=== PATIENT | male | born 1965 | race Two or more races ===

== ENCOUNTER 2020-09-06 22:28 | Inpatient (IN) | payer OTHER ==
[~2020-09-06] VITALS: Ht 175.3 cm; Wt 115.9 kg
[2020-09-06 23:20] LABS: Basophils # (auto) 0.1 10 ^3/uL (0-0.2); Eosinophils # (auto) 0 10 ^3/uL (0-0.8); Hematocrit 41.3 % (41.0-53.0); Hemoglobin 14.2 g/dL (13.5-17.5); Lymphocytes # (auto) 0.7 10 ^3/uL (0.4-5.4); Lymphocytes % (auto) 14.7 % (10.0-50.0); Mean Corpuscular Hemoglobin 28.9 pg (28.0-32.0); Mean Corpuscular Hgb Conc. 34.5 g/dL (32.0-36.0); Monocytes # (auto) 0.3 10 ^3/uL (0-1.3); Monocytes % (auto) 5.9 % (0.0-12.0); Neutrophils # (auto) 3.9 10 ^3/uL (1.6-8.6); Neutrophils % (auto) 77.4 % (37.0-80.0); Nucleated Red Blood Cells % 0.2 %; Platelet Count (auto) 165 10^3/uL (140-450); Red Blood Cells 4.92 10^6/uL (4.5-5.90)
[2020-09-06 23:38] LABS: Albumin 2.8 g/dL (3.4-5.0); Anion Gap 10 (5-15); BUN/Creatinine Ratio 19.5; Blood Urea Nitrogen 16 mg/dL (7-18); Calcium 8.3 mg/dL (8.5-10.1); Carbon Dioxide 22 mmol/L (21-32); Chloride 102 mmol/L (98-107); GFR African American 125 mL/min; GFR Non-African American 103 mL/min; Glucose 107 mg/dL (74-106); Magnesium 2.4 mg/dL (1.6-2.6); Potassium 3.6 mmol/L (3.5-5.1); Sodium 134 mmol/L (136-145)
[2020-09-06 23:39] LABS: INR 1.04 (0.9-1.15)
[2020-09-06 23:46] LABS: Alanine Aminotransferase 33 U/L (16-61); Alkaline Phosphatase 65 U/L (45-117); Aspartate Aminotransferase 44 U/L (15-37); Bilirubin, Total 1.2 mg/dL (0.2-1.0); Total Protein 7.5 g/dL (6.4-8.2)
[2020-09-07] MEDS ORDERED: ACETAMINOPHEN 500 MG TAB PO ONE (02:00)
[2020-09-07] MEDS ORDERED: MORPHINE SULF INJ 2 MG/ML SYRINGE 1ML IV PRN (03:00)
[2020-09-07] MEDS ORDERED: TEMAZEPAM 15 MG CAP PO PRN (03:00)
[2020-09-07] MEDS ORDERED: cloNIDine HCL 0.1 MG TAB PO PRN (03:00)
[2020-09-07] MEDS ORDERED: NITROGLYCERIN 0.4 MG SL TAB SL PRN (03:00)
[2020-09-07] MEDS ORDERED: REMDESIVIR PER PHARMACY 0 ML IV SCH (03:00)
[2020-09-07] MEDS ORDERED: DEXTROSE (50%) 50ML SYRG IV PRN ×2 (03:00)
[2020-09-07] MEDS ORDERED: ONDANSETRON HCL 4 MG/2 ML VIAL IV PRN (03:00)
[2020-09-07 03:04] VITALS: BP 120/69
[2020-09-07 03:57] LABS: CRP High Sensitivity 17.6 mg/dL (< 0.3)
[2020-09-07] MEDS: AZITHROMYCIN 500MG/ 250ML 250 ML IV SCH (04:03)
[2020-09-07] MEDS: DexAMETHasone SOD PHOS 10MG/1ML VIAL INJ IV SCH (04:03)
[2020-09-07 05:02] VITALS: BP 115/57
[2020-09-07] MEDS ORDERED: CLAR1TAB21 PO (05:31)
[2020-09-07] MEDS ORDERED: CHOL20007 PO (05:31)
[2020-09-07] MEDS ORDERED: INSUINJ3 SC (05:31)
[2020-09-07] MEDS ORDERED: ASPI-543 PO (05:31)
[2020-09-07] MEDS ORDERED: METF-929 PO (05:31)
[2020-09-07] MEDS ORDERED: [UNRECOGNIZED DRUG - CODE] IN (05:31)
[2020-09-07] MEDS ORDERED: ATOR-47 PO (05:31)
[2020-09-07] MEDS ORDERED: EMPA1TAB3 PO (05:31)
[2020-09-07] MEDS ORDERED: AMLO-496 PO (05:31)
[2020-09-07] MEDS ORDERED: LORA-622 PO (05:31)
[2020-09-07] MEDS ORDERED: METO-159 PO (05:31)
[2020-09-07] MEDS ORDERED: LOSA-39 PO (05:31)
[2020-09-07] MEDS ORDERED: BRIM0.1S3 OP (05:31)
[2020-09-07] MEDS: InsuLIN REG 1unit/0.01ml Soln (100units/ml) SC SCH ×4 (06:08→21:47)
[2020-09-07] MEDS: ACCU-CHEK COMFORT CURVE STRIP VI SCH ×4 (06:09→21:45)
[2020-09-07] MEDS ORDERED: ACCU-CHEK COMFORT CURVE STRIP VI SCH (07:00)
[2020-09-07] MEDS ORDERED: InsuLIN REG 1unit/0.01ml Soln (100units/ml) SC SCH (07:00)
[2020-09-07] MEDS: BUDESONIDE (INHALATION) 180 MCG IH IN SCH ×2 (08:15→19:11)
[2020-09-07] MEDS: ALBUTEROL SULF HFA 90MCG INH 200DOSE IN PRN ×3 (08:15→19:11)
[2020-09-07 08:30] VITALS: BP 120/62
[2020-09-07] MEDS ORDERED: REMDESIVIR 200 MG in NS 210ml LOADING DOSE ADULT IV ONE (10:00)
[2020-09-07] MEDS ORDERED: LOSARTAN POTASSIUM 50 MG TAB PO SCH (10:00)
[2020-09-07] MEDS ORDERED: diphenhdrAMINE HCL 50 MG/1 ML VL IV PRN (10:45)
[2020-09-07] MEDS: FAMOTIDINE 20 MG TAB PO SCH ×2 (10:48→21:45)
[2020-09-07] MEDS: METOPROLOL TARTRATE 50 MG TAB PO SCH ×2 (10:48→21:45)
[2020-09-07] MEDS: ASCORBIC ACID 1,000 MG TAB PO SCH (10:48)
[2020-09-07] MEDS: ASPirin 81 mg TAB PO SCH (10:48)
[2020-09-07] MEDS: ZINC SULFATE 220mg CAP or TAB PO SCH (10:48)
[2020-09-07] MEDS: CHOLECALCIFEROL (VITD3) 2,000 UNIT CAP/TAB PO SCH (10:49)
[2020-09-07] MEDS: ENOXAPARIN SOD 40 MG/0.4 ML SYRINGE SC SCH ×2 (10:49→21:45)
[2020-09-07 12:30] VITALS: BP 133/59
[2020-09-07] MEDS ORDERED: methylPREDNISolone SOD SUCC 40 MG/ML VL IV ONE (13:30)
[2020-09-07] MEDS ORDERED: diphenhdrAMINE HCL 50 MG/1 ML VL IV ONE (13:30)
[2020-09-07] MEDS ORDERED: ACETAMINOPHEN 650 mg PER 20.3 mL UD PO ONE (13:30)
[2020-09-07] MEDS ORDERED: guaiFENesin-DM 100/10mg/5ml SYR PO PRN (14:00)
[2020-09-07] MEDS ORDERED: FUROSEMIDE 40 MG/4 ML VIAL IV ONE (14:00)
[2020-09-07] MEDS ORDERED: TOCILIZUMAB 400 MG in SODIUM CHL 0.9% 80 ML IV ONE (14:00)
[2020-09-07] MEDS ORDERED: POTASSIUM CHL 10 Meq TABLET PO ONE (14:00)
[2020-09-07 16:59] VITALS: BP 117/69
[2020-09-07] MEDS: ATORVASTATIN 20 MG TAB PO SCH (21:44)
[2020-09-07] MEDS ORDERED: INSULIN LANTUS (GLARGINE) 1 /0.01ml (100units/ml) SC SCH (22:00)
[2020-09-08] VITALS (8 sets, daily range): BP systolic 108–149; BP diastolic 54–84
[2020-09-08] MEDS: ACCU-CHEK COMFORT CURVE STRIP VI SCH ×4 (05:50→22:00)
[2020-09-08] MEDS: InsuLIN REG 1unit/0.01ml Soln (100units/ml) SC SCH ×4 (05:55→22:50)
[2020-09-08 06:31] LABS: Basophils # (auto) 0 10 ^3/uL (0-0.2); Basophils % (auto) 0.2 % (0.0-2.0); Eosinophils # (auto) 0 10 ^3/uL (0-0.8); Hematocrit 40.3 % (41.0-53.0); Lymphocytes # (auto) 0.7 10 ^3/uL (0.4-5.4); Lymphocytes % (auto) 19.7 % (10.0-50.0); Mean Corpuscular Hemoglobin 29.3 pg (28.0-32.0); Mean Corpuscular Hgb Conc. 34.8 g/dL (32.0-36.0); Mean Corpuscular Volume 84.3 fL (80.0-100.0); Monocytes # (auto) 0.3 10 ^3/uL (0-1.3); Monocytes % (auto) 8.4 % (0.0-12.0); Neutrophils # (auto) 2.6 10 ^3/uL (1.6-8.6); Neutrophils % (auto) 71.7 % (37.0-80.0); Nucleated Red Blood Cells % 0.2 %; Platelet Count (auto) 202 10^3/uL (140-450); Red Blood Cells 4.78 10^6/uL (4.5-5.90); White Blood Cell 3.7 10^3/uL (4.4-10.8)
[2020-09-08 06:41] LABS: Albumin 2.6 g/dL (3.4-5.0); Calcium 8.2 mg/dL (8.5-10.1)
[2020-09-08] MEDS: BUDESONIDE (INHALATION) 180 MCG IH IN SCH ×2 (06:45→22:03)
[2020-09-08] MEDS: ALBUTEROL SULF HFA 90MCG INH 200DOSE IN PRN ×2 (06:45→22:03)
[2020-09-08 06:46] LABS: BUN/Creatinine Ratio 38.8; Bilirubin, Total 1.2 mg/dL (0.2-1.0); Total Protein 7.4 g/dL (6.4-8.2)
[2020-09-08] MEDS ORDERED: DEXTROSE (50%) 50ML SYRG IV PRN (09:15)
[2020-09-08] MEDS ORDERED: ACETAMINOPHEN 650 mg PER 20.3 mL UD PO ONE (10:00)
[2020-09-08] MEDS ORDERED: diphenhdrAMINE HCL 50 MG/1 ML VL IV ONE (10:00)
[2020-09-08] MEDS: FUROSEMIDE 40 MG/4 ML VIAL IV SCH (10:00)
[2020-09-08] MEDS: ASPirin 81 mg TAB PO SCH (10:30)
[2020-09-08] MEDS ORDERED: TOCILIZUMAB 400 MG in SODIUM CHL 0.9% 80 ML IV ONE (10:30)
[2020-09-08] MEDS: ZINC SULFATE 220mg CAP or TAB PO SCH (10:31)
[2020-09-08] MEDS: POTASSIUM CHL 10 Meq TABLET PO SCH (10:31)
[2020-09-08] MEDS: METOPROLOL TARTRATE 50 MG TAB PO SCH ×2 (10:32→23:11)
[2020-09-08] MEDS: FAMOTIDINE 20 MG TAB PO SCH ×2 (10:33→23:11)
[2020-09-08] MEDS: ASCORBIC ACID 1,000 MG TAB PO SCH (10:34)
[2020-09-08] MEDS: CHOLECALCIFEROL (VITD3) 2,000 UNIT CAP/TAB PO SCH (10:34)
[2020-09-08] MEDS: ENOXAPARIN SOD 40 MG/0.4 ML SYRINGE SC SCH ×2 (10:35→23:11)
[2020-09-08] MEDS: DexAMETHasone SOD PHOS 10MG/1ML VIAL INJ IV SCH (10:54)
[2020-09-08] MEDS: AZITHROMYCIN 500MG/ 250ML 250 ML IV SCH (11:59)
[2020-09-08] MEDS: INSULIN LANTUS (GLARGINE) 1 /0.01ml (100units/ml) SC SCH ×2 (12:04→22:51)
[2020-09-08] MEDS: REMDESIVIR 100mg 100 MG in SODIUM CHL 0.9% 230 ML IV SCH (16:10)
[2020-09-08] MEDS: ATORVASTATIN 20 MG TAB PO SCH (23:09)
[2020-09-08] MEDS: ACETAMINOPHEN 500 MG TAB PO PRN (23:11)
[2020-09-09] MEDS: ALBUTEROL SULF HFA 90MCG INH 200DOSE IN PRN ×2 (06:05→19:25)
[2020-09-09] MEDS: BUDESONIDE (INHALATION) 180 MCG IH IN SCH ×2 (06:05→19:25)
[2020-09-09] MEDS: InsuLIN REG 1unit/0.01ml Soln (100units/ml) SC SCH ×4 (06:47→22:40)
[2020-09-09] MEDS: ACCU-CHEK COMFORT CURVE STRIP VI SCH ×4 (06:48→22:00)
[2020-09-09 08:51] VITALS: BP 124/69
[2020-09-09] MEDS: AZITHROMYCIN 500MG/ 250ML 250 ML IV SCH (09:35)
[2020-09-09] MEDS: FUROSEMIDE 40 MG/4 ML VIAL IV SCH (09:35)
[2020-09-09] MEDS: DexAMETHasone SOD PHOS 10MG/1ML VIAL INJ IV SCH (09:35)
[2020-09-09] MEDS: ZINC SULFATE 220mg CAP or TAB PO SCH (09:36)
[2020-09-09] MEDS: ASPirin 81 mg TAB PO SCH (09:36)
[2020-09-09] MEDS: POTASSIUM CHL 10 Meq TABLET PO SCH (09:36)
[2020-09-09] MEDS: CHOLECALCIFEROL (VITD3) 2,000 UNIT CAP/TAB PO SCH (09:37)
[2020-09-09] MEDS: FAMOTIDINE 20 MG TAB PO SCH ×2 (09:37→22:53)
[2020-09-09] MEDS: ASCORBIC ACID 1,000 MG TAB PO SCH (09:37)
[2020-09-09] MEDS: METOPROLOL TARTRATE 50 MG TAB PO SCH ×2 (09:37→22:52)
[2020-09-09] MEDS: ENOXAPARIN SOD 40 MG/0.4 ML SYRINGE SC SCH ×2 (09:38→22:53)
[2020-09-09] MEDS: INSULIN LANTUS (GLARGINE) 1 /0.01ml (100units/ml) SC SCH ×2 (09:39→22:43)
[2020-09-09 13:22] VITALS: BP 130/72
[2020-09-09] MEDS: REMDESIVIR 100mg 100 MG in SODIUM CHL 0.9% 230 ML IV SCH (14:25)
[2020-09-09 16:40] VITALS: BP 113/63
[2020-09-09 22:00] VITALS: BP 128/68
[2020-09-09] MEDS: ATORVASTATIN 20 MG TAB PO SCH (22:52)
[2020-09-10 05:00] VITALS: BP 124/66
[2020-09-10] MEDS: BUDESONIDE (INHALATION) 180 MCG IH IN SCH ×2 (06:04→22:55)
[2020-09-10] MEDS: ALBUTEROL SULF HFA 90MCG INH 200DOSE IN PRN (06:05)
[2020-09-10 06:07] LABS: Albumin 2.6 g/dL (3.4-5.0); BUN/Creatinine Ratio 42.4; Calcium 8.3 mg/dL (8.5-10.1); Potassium 3.9 mmol/L (3.5-5.1)
[2020-09-10 06:10] LABS: Bilirubin, Total 0.8 mg/dL (0.2-1.0); Total Protein 6.5 g/dL (6.4-8.2)
[2020-09-10] MEDS: InsuLIN REG 1unit/0.01ml Soln (100units/ml) SC SCH ×4 (06:18→21:35)
[2020-09-10] MEDS: ACCU-CHEK COMFORT CURVE STRIP VI SCH ×4 (06:19→21:27)
[2020-09-10 08:00] VITALS: BP 118/69
[2020-09-10] MEDS: FUROSEMIDE 40 MG/4 ML VIAL IV SCH (08:58)
[2020-09-10] MEDS: ENOXAPARIN SOD 40 MG/0.4 ML SYRINGE SC SCH ×2 (08:58→21:27)
[2020-09-10] MEDS: DexAMETHasone SOD PHOS 10MG/1ML VIAL INJ IV SCH (08:58)
[2020-09-10] MEDS: AZITHROMYCIN 500MG/ 250ML 250 ML IV SCH (08:58)
[2020-09-10] MEDS: FAMOTIDINE 20 MG TAB PO SCH ×2 (08:58→21:26)
[2020-09-10] MEDS: ASPirin 81 mg TAB PO SCH (08:59)
[2020-09-10] MEDS: POTASSIUM CHL 10 Meq TABLET PO SCH (08:59)
[2020-09-10] MEDS: ASCORBIC ACID 1,000 MG TAB PO SCH (08:59)
[2020-09-10] MEDS: METOPROLOL TARTRATE 50 MG TAB PO SCH ×2 (08:59→21:27)
[2020-09-10] MEDS: ZINC SULFATE 220mg CAP or TAB PO SCH (08:59)
[2020-09-10] MEDS: CHOLECALCIFEROL (VITD3) 2,000 UNIT CAP/TAB PO SCH (08:59)
[2020-09-10] MEDS: INSULIN LANTUS (GLARGINE) 1 /0.01ml (100units/ml) SC SCH ×2 (11:01→21:35)
[2020-09-10 12:00] VITALS: BP 139/76
[2020-09-10] MEDS: REMDESIVIR 100mg 100 MG in SODIUM CHL 0.9% 230 ML IV SCH (15:08)
[2020-09-10 15:56] VITALS: BP 122/65
[2020-09-10] MEDS: ACETAMINOPHEN 500 MG TAB PO PRN (19:19)
[2020-09-10] MEDS: ATORVASTATIN 20 MG TAB PO SCH (21:26)
[2020-09-10 22:00] VITALS: BP 122/72
[2020-09-11] VITALS (7 sets, daily range): BP systolic 123–143; BP diastolic 65–77
[2020-09-11] MEDS: ACCU-CHEK COMFORT CURVE STRIP VI SCH ×4 (05:58→22:00)
[2020-09-11] MEDS ORDERED: BRIMONIDINE 0.2% OPTH Soln 5ml EACHEYE SCH (06:00)
[2020-09-11] MEDS: BRIMONIDINE 0.2% OPTH Soln 5ml LEFTEYE SCH ×3 (06:00→22:00)
[2020-09-11] MEDS: InsuLIN REG 1unit/0.01ml Soln (100units/ml) SC SCH ×4 (06:13→22:00)
[2020-09-11] MEDS: ALBUTEROL SULF HFA 90MCG INH 200DOSE IN PRN ×2 (06:50→19:25)
[2020-09-11] MEDS: BUDESONIDE (INHALATION) 180 MCG IH IN SCH ×2 (06:50→19:25)
[2020-09-11 07:32] LABS: Albumin 2.7 g/dL (3.4-5.0); BUN/Creatinine Ratio 44.4; Calcium 8.6 mg/dL (8.5-10.1)
[2020-09-11 07:42] LABS: Bilirubin, Total 0.9 mg/dL (0.2-1.0); Total Protein 6.3 g/dL (6.4-8.2)
[2020-09-11 08:42] LABS: Hematocrit 42.8 % (41.0-53.0); Mean Corpuscular Hemoglobin 29.4 pg (28.0-32.0); Mean Corpuscular Volume 84.1 fL (80.0-100.0); Platelet Count (auto) 267 10^3/uL (140-450); Red Blood Cells 5.09 10^6/uL (4.5-5.90); Red Cell Distribution Width 13.9 % (11.8-14.3); White Blood Cell 4.8 10^3/uL (4.4-10.8)
[2020-09-11 08:47] LABS: Basophils % (manual) 0 (0.0-2.0); Blast Cells 0; Eosinophils % (manual) 0 (0-7); Promyelocytes % 0; Reactive Lymphocytes 0
[2020-09-11] MEDS: DexAMETHasone SOD PHOS 10MG/1ML VIAL INJ IV SCH (10:29)
[2020-09-11] MEDS: AZITHROMYCIN 500MG/ 250ML 250 ML IV SCH (10:30)
[2020-09-11] MEDS: ZINC SULFATE 220mg CAP or TAB PO SCH (10:30)
[2020-09-11] MEDS: FUROSEMIDE 40 MG/4 ML VIAL IV SCH (10:30)
[2020-09-11] MEDS: ASPirin 81 mg TAB PO SCH (10:30)
[2020-09-11] MEDS: POTASSIUM CHL 10 Meq TABLET PO SCH (10:31)
[2020-09-11] MEDS: ASCORBIC ACID 1,000 MG TAB PO SCH (10:31)
[2020-09-11] MEDS: METOPROLOL TARTRATE 50 MG TAB PO SCH ×2 (10:31→23:15)
[2020-09-11] MEDS: FAMOTIDINE 20 MG TAB PO SCH ×2 (10:31→23:15)
[2020-09-11] MEDS: CHOLECALCIFEROL (VITD3) 2,000 UNIT CAP/TAB PO SCH (10:32)
[2020-09-11] MEDS: ENOXAPARIN SOD 40 MG/0.4 ML SYRINGE SC SCH ×2 (10:32→23:16)
[2020-09-11] MEDS: INSULIN LANTUS (GLARGINE) 1 /0.01ml (100units/ml) SC SCH ×2 (12:00→22:00)
[2020-09-11 13:51] LABS: Band Neutrophils % (manual) 3; Lymphocytes % (manual) 38 (10.0-50.0); Metamyelocytes % 2; Monocytes % (manual) 4 (0-12); Myelocytes % 1
[2020-09-11] MEDS: REMDESIVIR 100mg 100 MG in SODIUM CHL 0.9% 230 ML IV SCH (14:40)
[2020-09-11] MEDS: ATORVASTATIN 20 MG TAB PO SCH (23:16)
[2020-09-12 05:00] VITALS: BP 112/59
[2020-09-12] MEDS: BRIMONIDINE 0.2% OPTH Soln 5ml LEFTEYE SCH ×3 (06:00→21:33)
[2020-09-12] MEDS: ALBUTEROL SULF HFA 90MCG INH 200DOSE IN PRN ×2 (06:50→21:43)
[2020-09-12] MEDS: BUDESONIDE (INHALATION) 180 MCG IH IN SCH ×2 (06:50→21:43)
[2020-09-12] MEDS: InsuLIN REG 1unit/0.01ml Soln (100units/ml) SC SCH ×3 (06:55→17:04)
[2020-09-12] MEDS: ACCU-CHEK COMFORT CURVE STRIP VI SCH ×3 (07:00→17:04)
[2020-09-12 08:31] VITALS: BP 124/68
[2020-09-12] MEDS: DexAMETHasone SOD PHOS 10MG/1ML VIAL INJ IV SCH (09:04)
[2020-09-12] MEDS: ASPirin 81 mg TAB PO SCH (09:04)
[2020-09-12] MEDS: FUROSEMIDE 40 MG/4 ML VIAL IV SCH (09:04)
[2020-09-12] MEDS: FAMOTIDINE 20 MG TAB PO SCH ×2 (09:05→21:31)
[2020-09-12] MEDS: ASCORBIC ACID 1,000 MG TAB PO SCH (09:05)
[2020-09-12] MEDS: METOPROLOL TARTRATE 50 MG TAB PO SCH ×2 (09:05→21:33)
[2020-09-12] MEDS: POTASSIUM CHL 10 Meq TABLET PO SCH (09:05)
[2020-09-12] MEDS: ZINC SULFATE 220mg CAP or TAB PO SCH (09:05)
[2020-09-12] MEDS: ENOXAPARIN SOD 40 MG/0.4 ML SYRINGE SC SCH ×2 (09:06→21:31)
[2020-09-12] MEDS: CHOLECALCIFEROL (VITD3) 2,000 UNIT CAP/TAB PO SCH (09:06)
[2020-09-12] MEDS: INSULIN LANTUS (GLARGINE) 1 /0.01ml (100units/ml) SC SCH (09:52)
[2020-09-12 13:02] VITALS: BP 97/50
[2020-09-12 17:20] VITALS: BP 113/72
[2020-09-12] MEDS: ATORVASTATIN 20 MG TAB PO SCH (21:31)
[2020-09-12] MEDS: ACETAMINOPHEN 500 MG TAB PO PRN (21:32)
[2020-09-12 22:00] VITALS: BP 141/67
[2020-09-13] MEDS: ACCU-CHEK COMFORT CURVE STRIP VI SCH ×5 (03:40→21:34)
[2020-09-13] MEDS: InsuLIN REG 1unit/0.01ml Soln (100units/ml) SC SCH ×5 (03:41→21:45)
[2020-09-13] MEDS: INSULIN LANTUS (GLARGINE) 1 /0.01ml (100units/ml) SC SCH ×3 (03:42→21:42)
[2020-09-13 05:00] VITALS: BP 135/75
[2020-09-13] MEDS: BRIMONIDINE 0.2% OPTH Soln 5ml LEFTEYE SCH ×3 (05:32→22:01)
[2020-09-13] MEDS: ALBUTEROL SULF HFA 90MCG INH 200DOSE IN PRN ×2 (06:30→20:47)
[2020-09-13] MEDS: BUDESONIDE (INHALATION) 180 MCG IH IN SCH ×2 (06:30→20:46)
[2020-09-13 08:30] VITALS: BP 120/59
[2020-09-13] MEDS: DexAMETHasone SOD PHOS 10MG/1ML VIAL INJ IV SCH (10:20)
[2020-09-13] MEDS: ZINC SULFATE 220mg CAP or TAB PO SCH (10:21)
[2020-09-13] MEDS: ASPirin 81 mg TAB PO SCH (10:21)
[2020-09-13] MEDS: FUROSEMIDE 40 MG/4 ML VIAL IV SCH (10:21)
[2020-09-13] MEDS: POTASSIUM CHL 10 Meq TABLET PO SCH (10:21)
[2020-09-13] MEDS: CHOLECALCIFEROL (VITD3) 2,000 UNIT CAP/TAB PO SCH (10:22)
[2020-09-13] MEDS: METOPROLOL TARTRATE 50 MG TAB PO SCH ×2 (10:22→21:33)
[2020-09-13] MEDS: ASCORBIC ACID 1,000 MG TAB PO SCH (10:22)
[2020-09-13] MEDS: FAMOTIDINE 20 MG TAB PO SCH ×2 (10:22→21:33)
[2020-09-13] MEDS: ENOXAPARIN SOD 40 MG/0.4 ML SYRINGE SC SCH ×2 (10:22→21:34)
[2020-09-13 12:30] VITALS: BP 117/74
[2020-09-13 16:58] VITALS: BP 133/78
[2020-09-13] MEDS: ATORVASTATIN 20 MG TAB PO SCH (21:33)
[2020-09-13 22:00] VITALS: BP 122/64
[2020-09-14] MEDS: ACETAMINOPHEN 500 MG TAB PO PRN (02:44)
[2020-09-14 05:00] VITALS: BP 121/66
[2020-09-14] MEDS: BRIMONIDINE 0.2% OPTH Soln 5ml LEFTEYE SCH (05:51)
[2020-09-14] MEDS: BUDESONIDE (INHALATION) 180 MCG IH IN SCH (06:15)
[2020-09-14] MEDS: ALBUTEROL SULF HFA 90MCG INH 200DOSE IN PRN ×2 (06:15→07:33)
[2020-09-14] MEDS: InsuLIN REG 1unit/0.01ml Soln (100units/ml) SC SCH ×2 (06:22→12:13)
[2020-09-14] MEDS: ACCU-CHEK COMFORT CURVE STRIP VI SCH ×2 (06:22→12:07)
[2020-09-14 08:30] VITALS: BP 127/72
[2020-09-14] MEDS: DexAMETHasone SOD PHOS 10MG/1ML VIAL INJ IV SCH (09:49)
[2020-09-14] MEDS: ZINC SULFATE 220mg CAP or TAB PO SCH (09:50)
[2020-09-14] MEDS: FUROSEMIDE 40 MG/4 ML VIAL IV SCH (09:50)
[2020-09-14] MEDS: ASPirin 81 mg TAB PO SCH (09:50)
[2020-09-14] MEDS: POTASSIUM CHL 10 Meq TABLET PO SCH (09:50)
[2020-09-14] MEDS: FAMOTIDINE 20 MG TAB PO SCH (09:51)
[2020-09-14] MEDS: ENOXAPARIN SOD 40 MG/0.4 ML SYRINGE SC SCH (09:51)
[2020-09-14] MEDS: METOPROLOL TARTRATE 50 MG TAB PO SCH (09:51)
[2020-09-14] MEDS: ASCORBIC ACID 1,000 MG TAB PO SCH (09:51)
[2020-09-14] MEDS: CHOLECALCIFEROL (VITD3) 2,000 UNIT CAP/TAB PO SCH (09:51)
[2020-09-14] MEDS ORDERED: ZINC220T6 PO (10:38)
[2020-09-14] MEDS ORDERED: ASCO500T11 PO (10:38)
[2020-09-14] MEDS ORDERED: ALBUAER3 IN (10:38)
[2020-09-14] MEDS ORDERED: DEX4T PO (10:38)
[2020-09-14 11:20] VITALS: BP 127/72
[2020-09-14] MEDS: INSULIN LANTUS (GLARGINE) 1 /0.01ml (100units/ml) SC SCH (12:16)
[2020-09-14 12:30] VITALS: BP 142/67
== END 2020-09-14 14:01 | disposition home or self-care (01) | DRG 137 ==
LOC: ER 22:32 → TELE 22:33 → TELE-WESTW 09-07 04:27
PROVIDERS: ADMIT Nurse Practitioner; ATTEND Internal Medicine
PROC: XW033E5 Introduction of Remdesivir Anti-infective into Peripheral Vein, Percutaneous Approach, New Technology Group 5 (ICD-10-PCS; 2020-09-07)
PROC: XW033H5 Introduction of Tocilizumab into Peripheral Vein, Percutaneous Approach, New Technology Group 5 (ICD-10-PCS; 2020-09-07)
PROC: XW13325 Transfusion of Convalescent Plasma (Nonautologous) into Peripheral Vein, Percutaneous Approach, New Technology Group 5 (ICD-10-PCS; principal; 2020-09-08)
DX: U07.1 COVID-19 (principal); J12.82 Pneumonia due to coronavirus disease 2019; J96.01 Acute respiratory failure with hypoxia; E66.01 Morbid (severe) obesity due to excess calories; I10 Essential (primary) hypertension; E78.5 Hyperlipidemia, unspecified; I48.91 Unspecified atrial fibrillation; E11.65 Type 2 diabetes mellitus with hyperglycemia; I25.10 Atherosclerotic heart disease of native coronary artery without angina pectoris; J45.909 Unspecified asthma, uncomplicated; T38.0X5A Adverse effect of glucocorticoids and synthetic analogues, initial encounter; E44.0 Moderate protein-calorie malnutrition; Z88.0 Allergy status to penicillin; Y92.89 Other specified places as the place of occurrence of the external cause; Z83.3 Family history of diabetes mellitus; Z68.41 Body mass index [BMI] 40.0-44.9, adult; Z95.1 Presence of aortocoronary bypass graft
CPT/HCPCS: 36415; 71045; 80053; 82728; 82962; 83036; 83605; 83615; 83735; 83880; 84443; 84484; 85007; 85025; 85027; 85379; 85610; 86141; 86850; 86900; 86901; 87426; 93005; 94003; 94640; 96365; 96375; G0378; J1100; J1815

== ENCOUNTER 2022-01-14 02:26 | Emergency (ER) | payer OTHER ==
[~2022-01-14] VITALS: Ht 175.3 cm; Wt 125.3 kg
[~2022-01-14 02:26] MED LIST: ALBUAER3 IN; AMLO-496 PO; ASCO500T11 PO; ASPI-543 PO; ATOR-47 PO; BRIM0.1S3 OP; CHOL20007 PO; DEX4T PO; EMPA1TAB3 PO; INSUINJ3 SC; LORA-622 PO; LOSA-39 PO; METF-929 PO; METO-159 PO; ZINC220T6 PO; [UNRECOGNIZED DRUG - CODE] IN
[2022-01-14] MEDS ORDERED: ALBUTEROL SULF 2.5 MG/0.5ML(0.5%) NEB SOLN NEB ONE (04:45)
[2022-01-14] MEDS ORDERED: IPRATROPIUM BROM 0.5 MG/2.5ML INH SOL NEB ONE (04:45)
[2022-01-14] MEDS ORDERED: DexAMETHasone SOD PHOS 10MG/1ML VIAL INJ IM ONE (04:45)
[2022-01-14 05:58] VITALS: BP 130/69
== END 2022-01-14 06:01 | disposition home or self-care (01) ==
LOC: ER 02:26
DX: J45.909 Unspecified asthma, uncomplicated (principal); E11.9 Type 2 diabetes mellitus without complications; E78.5 Hyperlipidemia, unspecified; I10 Essential (primary) hypertension; Z88.0 Allergy status to penicillin
CPT/HCPCS: 71045; 94640; 96372; 99283; J1100; J7644; 93005

== ENCOUNTER 2023-06-15 13:42 | Emergency (ER) | payer OTHER ==
[~2023-06-15] VITALS: Ht 175.3 cm; Wt 112.4 kg
[~2023-06-15 13:42] MED LIST changes: -AMLO-496 PO; +AMLO1TAB23 PO; -LOSA-39 PO; +LOSA100T58 PO; +[UNRECOGNIZED DRUG - CODE] IN; -[UNRECOGNIZED DRUG - CODE] IN
[2023-06-15 15:06] VITALS: BP 121/55; PULSE 86; RESP 18; TEMP 97.8; O2SAT 98
[2023-06-15] MEDS ORDERED: BACDST PO (15:06)
[2023-06-15] MEDS ORDERED: CEPH500C PO (15:06)
== END 2023-06-15 15:14 | disposition home or self-care (01) ==
LOC: ER 13:42
DX: R21 Rash and other nonspecific skin eruption (principal); I10 Essential (primary) hypertension; I25.10 Atherosclerotic heart disease of native coronary artery without angina pectoris; I48.91 Unspecified atrial fibrillation; E11.9 Type 2 diabetes mellitus without complications; E78.5 Hyperlipidemia, unspecified; J45.909 Unspecified asthma, uncomplicated; Z95.1 Presence of aortocoronary bypass graft; Z79.82 Long term (current) use of aspirin; Z79.4 Long term (current) use of insulin; Z79.899 Other long term (current) drug therapy; Z88.0 Allergy status to penicillin

== ENCOUNTER 2024-01-10 17:44 | Emergency (ER) | payer MEDICAID, OTHER ==
[~2024-01-10] VITALS: Ht 175.3 cm; Wt 117.5 kg
[~2024-01-10 17:44] MED LIST changes: +BACDST PO; +CEPH500C PO; +LOSA-535 PO; -LOSA100T58 PO
[2024-01-10 18:24] VITALS: BP 135/70; PULSE 88; RESP 16; TEMP 97.2; O2SAT 97
[2024-01-10] MEDS ORDERED: AMOX500T3 PO (19:12)
[2024-01-10] MEDS: ACETAMINOPHEN 325 MG TAB PO ONE (19:22)
[2024-01-10] MEDS: DexAMETHasone SOD PHOS 10MG/1ML VIAL INJ IM ONE (19:22)
== END 2024-01-10 19:29 | disposition home or self-care (01) ==
LOC: ER 17:44
DX: J02.9 Acute pharyngitis, unspecified (principal); I10 Essential (primary) hypertension; E11.9 Type 2 diabetes mellitus without complications; E78.5 Hyperlipidemia, unspecified; I25.10 Atherosclerotic heart disease of native coronary artery without angina pectoris; J45.909 Unspecified asthma, uncomplicated; I48.91 Unspecified atrial fibrillation; Z98.890 Other specified postprocedural states; Z88.0 Allergy status to penicillin; Z79.899 Other long term (current) drug therapy
CPT/HCPCS: 96372; 99283; J1100

== ENCOUNTER 2024-10-05 04:49 | Emergency (ER) | payer MEDICAID ==
[~2024-10-05] VITALS: Ht 175.3 cm; Wt 104.8 kg
[~2024-10-05 04:49] MED LIST changes: +AMOX500T3 PO
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
[2024-10-05] MEDS: ACETAMINOPHEN 325 MG TAB PO ONE (06:19)
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
[2024-10-05] MEDS: KETOROLAC TROMETH 30 MG/ML 1ML VIAL IM ONE (06:39)
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
[2024-10-05] MEDS ORDERED: IBU600T PO (07:27)
[2024-10-05] MEDS ORDERED: CYCL-839 PO (07:27)
[2024-10-05 07:36] VITALS: BP 174/84; PULSE 106; RESP 16; TEMP 97.5; O2SAT 95
== END 2024-10-05 07:35 | disposition home or self-care (01) ==
LOC: ER 04:49
DX: S39.012A Strain of muscle, fascia and tendon of lower back, initial encounter (principal); S16.1XXA Strain of muscle, fascia and tendon at neck level, initial encounter; I48.91 Unspecified atrial fibrillation; J45.909 Unspecified asthma, uncomplicated; I25.10 Atherosclerotic heart disease of native coronary artery without angina pectoris; E11.9 Type 2 diabetes mellitus without complications; E78.5 Hyperlipidemia, unspecified; I10 Essential (primary) hypertension; Z88.0 Allergy status to penicillin; Z79.84 Long term (current) use of oral hypoglycemic drugs; Z79.52 Long term (current) use of systemic steroids; Z79.51 Long term (current) use of inhaled steroids; Z79.82 Long term (current) use of aspirin; Z79.899 Other long term (current) drug therapy; Z95.1 Presence of aortocoronary bypass graft; V43.52XA Car driver injured in collision with other type car in traffic accident, initial encounter; Y93.89 Activity, other specified; Y92.410 Unspecified street and highway as the place of occurrence of the external cause; Y99.8 Other external cause status
CPT/HCPCS: 72070; 72100; 72125; 96372; 99285; J1885